=== PATIENT | female | born 1960 | race Caucasian/White ===

== ENCOUNTER 2024-09-12 10:56 | Inpatient (IN) | payer MEDICARE, BC ==
[2024-09-05 12:42] LABS: BASOPHILS % 0.3 % (0.0-1.0); EOSINOPHILS # (AUTO) 0.2 (0.0-0.4); EOSINOPHILS % 2.8 % (0.0-6.0); HEMATOCRIT 46.2 % (34.2-44.1); HEMOGLOBIN 15.1 g/dL (12.0-16.0); LYMPHOCYTES # (AUTO) 2.1 (1.0-3.2); LYMPHOCYTES % 33.2 % (18.0-39.1); MEAN CORPUSCULAR HEMOGLOBIN 29.7 pg (28-32); MEAN CORPUSCULAR HGB CONC 32.7 g/dL (31-35); MEAN CORPUSCULAR VOLUME 90.8 fL (81-99); MONOCYTES # (AUTO) 0.4 (0.2-0.8); MONOCYTES % 6.4 % (4.4-11.3); NEUTROPHILS # (AUTO) 3.7 (2.1-6.9); PLATELET COUNT 300 x10e3/uL (140-360); RED BLOOD COUNT 5.09 x10e6/uL (3.6-5.1); RED CELL DISTRIBUTION WIDTH 12.9 % (11.7-14.4); WHITE BLOOD COUNT 6.41 x10e3/uL (4.8-10.8)
[2024-09-05 13:08] LABS: ANION GAP 14.7 mmol/L (8-16); CREATININE, SERUM 0.73 mg/dL (0.57-1.11); POTASSIUM 4.7 mmol/L (3.5-5.1)
[~2024-09-12] VITALS: Ht 157.5 cm; Wt 60.9 kg
[~2024-09-12 10:56] MED LIST: BUSPIRONE HCL5 MG PO; CO Q-10200 MG PO; ESTRADIOL1 MG PO; MAGNESIUM400 MG PO; MEGARED OMEGA-1 EAC1 PEG; MELATONIN5 M2 PO; NP THYROID60 MG PO; PRISTIQ ER50 MG PO; PROGESTERONE100 MG PO; SELENIUM200 MC2 PEG; TUMERIC/CURCUMIN PO; VITAMIN B121000 MCG PO; VITAMIN C1000 MG PO; VITAMIN D31250 MCG PO; XYZAL5 MG PO; ZINC50 M2 PEG
[2024-09-12] MEDS: PIPERACILLIN/TAZOBACTAM 3.375 GM VIAL ONE (11:20)
[2024-09-12] MEDS: GENTAMICIN 80MG/NS 100 ML 200 ML IV ONE (11:20)
[2024-09-12] MEDS: SODIUM CHLORIDE 0.9% 1000ML 1,000 ML ONE (11:20)
[2024-09-12] MEDS: CLINDAMYCIN 600MG / 50ML 50 ML IV ONE (11:20)
[2024-09-12] MEDS ORDERED: MOUNJARO2.5 MG/0.5 SC (11:35)
[2024-09-12] MEDS ORDERED: FENTANYL CITRATE/PF 100MCG/2 ML INJ ONE (14:52)
[2024-09-12] MEDS ORDERED: LIDOCAINE HCL 2% LOCAL INJ 5 ML SDV VIAL INJ ONE (14:52)
[2024-09-12] MEDS ORDERED: ROCURONIUM BROMIDE 1 ML IV ONE (14:52)
[2024-09-12] MEDS ORDERED: PROPOFOL IV EMULSION 10 MG/ML 20 ML VIAL ONE ×2 (14:54→16:56)
[2024-09-12] MEDS ORDERED: ONDANSETRON HCL INJ 2MG/ML 2ML 2 MG/ML VIAL IV PRN (15:30)
[2024-09-12] MEDS ORDERED: ACETAMINOPHEN 1000 MG/100 ML IV PRN (15:30)
[2024-09-12] MEDS ORDERED: DIPHENHYDRAMINE HCL INJ 50 MG/ML VIAL IM PRN (15:30)
[2024-09-12] MEDS ORDERED: DEXAMETHASONE SOD PHOS INJ 4 MG/ML SDV ONE (16:17)
[2024-09-12] MEDS ORDERED: ACETAMINOPHEN 1000 MG/100 ML 100 ML IV ONE (16:21)
[2024-09-12] MEDS ORDERED: ESMOLOL HCL 100MG/10ML 10 MG/ML VIAL ONE (16:21)
[2024-09-12] MEDS ORDERED: EPHEDRINE SULFATE INJ 50 MG/ML VIAL ONE (16:36)
[2024-09-12] MEDS ORDERED: SEVOFLURANE INHAL SOLN 250 ML PEN BTL ONE (16:51)
[2024-09-12] MEDS ORDERED: SUGAMMADEX SODIUM 200 MG/2 ML VIAL IV ONE (17:06)
[2024-09-12] MEDS: METOCLOPRAMIDE HCL 10 MG/2ML VIAL ONE (17:41)
[2024-09-12] MEDS: ONDANSETRON HCL INJ 2MG/ML 2ML 2 MG/ML VIAL ONE (17:41)
[2024-09-12] MEDS: FENTANYL CITRATE/PF 100MCG/2 ML INJ ONE (17:41)
[2024-09-12] MEDS: SENNA-S TABLET PO SCH (18:29)
[2024-09-12] MEDS: SODIUM CHLORIDE 0.9% 1000ML 1,000 ML IV SCH (18:30)
[2024-09-12 18:42] VITALS: BP 95/71; PULSE 71; RESP 18; O2SAT 98
[2024-09-12 19:37] VITALS: PULSE 76; RESP 18; O2SAT 98
[2024-09-12 20:00] VITALS: BP 85/68; PULSE 80; RESP 16; TEMP 97.7; O2SAT 100
[2024-09-12] MEDS: KETOROLAC TROMETHAMINE 30 MG/ML VIAL ONE (20:41)
[2024-09-12 22:28] VITALS: BP 96/61
[2024-09-12 22:37] VITALS: BP 96/61; PULSE 80; RESP 16; TEMP 97.7; O2SAT 100
[2024-09-13] VITALS (9 sets, daily range): BP systolic 93–138; BP diastolic 51–69; PULSE 71–82; RESP 17–19; TEMP 97.5–98.4; O2SAT 98–100
[2024-09-13 05:23] LABS: BASOPHILS % 0.2 % (0.0-1.0); HEMATOCRIT 37.6 % (34.2-44.1); HEMOGLOBIN 12.3 g/dL (12.0-16.0); LYMPHOCYTES # (AUTO) 1.2 (1.0-3.2); LYMPHOCYTES % 9.5 % (18.0-39.1); MEAN CORPUSCULAR HEMOGLOBIN 29.9 pg (28-32); MEAN CORPUSCULAR HGB CONC 32.7 g/dL (31-35); MEAN CORPUSCULAR VOLUME 91.5 fL (81-99); MONOCYTES # (AUTO) 0.7 (0.2-0.8); MONOCYTES % 5.1 % (4.4-11.3); NEUTROPHILS # (AUTO) 10.9 (2.1-6.9); NEUTROPHILS % 84.8 % (38.7-80.0); PLATELET COUNT 245 x10e3/uL (140-360); RED BLOOD COUNT 4.11 x10e6/uL (3.6-5.1); RED CELL DISTRIBUTION WIDTH 13.4 % (11.7-14.4); WHITE BLOOD COUNT 12.81 x10e3/uL (4.8-10.8)
[2024-09-13] MEDS: ACETAMINOPHEN/CODEINE 300MG - 30MG TAB PO PRN (05:38)
[2024-09-13 05:46] LABS: ANION GAP 12.2 mmol/L (8-16); CALCIUM 7.6 mg/dL (8.4-10.2); CREATININE, SERUM 0.61 mg/dL (0.57-1.11); POTASSIUM 4.2 mmol/L (3.5-5.1)
[2024-09-13] MEDS: THYROID 60 MG TAB PO SCH (09:49)
[2024-09-13] MEDS: CYANOCOBALAMIN 1,000 MCG TAB PO SCH (09:49)
[2024-09-13] MEDS: BUSPIRONE HCL 5 MG TAB PO SCH (09:49)
[2024-09-13] MEDS: LORATADINE 10 MG TAB PO SCH (09:49)
[2024-09-13] MEDS: DESVENLAFAXINE SUCCINATE 50 MG TAB.SR.24H PO SCH (09:50)
[2024-09-13] MEDS: PHENAZOPYRIDINE HCL 100 MG TAB PO PRN (10:01)
[2024-09-13] MEDS: MELATONIN 5 MG TABLET PO SCH (20:17)
[2024-09-14] VITALS: BP 122/68; PULSE 81; RESP 18; TEMP 97.8; O2SAT 99
[2024-09-14 01:24] VITALS: BP 138/69; PULSE 72; RESP 18; TEMP 98.1; O2SAT 100
[2024-09-14 04:00] VITALS: BP 136/66; PULSE 84; RESP 18; TEMP 98.2; O2SAT 97
[2024-09-14 05:15] LABS: BASOPHILS % 0.3 % (0.0-1.0); EOSINOPHILS # (AUTO) 0.1 (0.0-0.4); EOSINOPHILS % 1.8 % (0.0-6.0); HEMATOCRIT 35.1 % (34.2-44.1); HEMOGLOBIN 11.4 g/dL (12.0-16.0); LYMPHOCYTES # (AUTO) 1.7 (1.0-3.2); LYMPHOCYTES % 21.9 % (18.0-39.1); MEAN CORPUSCULAR HEMOGLOBIN 29.9 pg (28-32); MEAN CORPUSCULAR HGB CONC 32.5 g/dL (31-35); MEAN CORPUSCULAR VOLUME 92.1 fL (81-99); MONOCYTES # (AUTO) 0.6 (0.2-0.8); NEUTROPHILS # (AUTO) 5.1 (2.1-6.9); NEUTROPHILS % 67.6 % (38.7-80.0); PLATELET COUNT 208 x10e3/uL (140-360); RED BLOOD COUNT 3.81 x10e6/uL (3.6-5.1); RED CELL DISTRIBUTION WIDTH 13.6 % (11.7-14.4); WHITE BLOOD COUNT 7.59 x10e3/uL (4.8-10.8)
[2024-09-14 06:00] LABS: ANION GAP 10.1 mmol/L (8-16); CALCIUM 7.7 mg/dL (8.4-10.2); CREATININE, SERUM 0.65 mg/dL (0.57-1.11); POTASSIUM 4.1 mmol/L (3.5-5.1)
[2024-09-14 08:00] VITALS: BP 136/66; PULSE 84; RESP 18; TEMP 98.2; O2SAT 97
[2024-09-14] MEDS: ESTRADIOL 1 MG TAB PO SCH (12:23)
[2024-09-14] MEDS: ASCORBIC ACID 500 MG TAB PO SCH (12:23)
[2024-09-14] MEDS ORDERED: TYLENOL WITH CODIENE PO (16:26)
[2024-09-14] MEDS ORDERED: LEVOFLOXACIN250 MG PO (16:29)
== END 2024-09-14 17:07 | disposition home or self-care (01) | DRG 748 ==
LOC: OR 10:56 → PACU V 15:24 → MED/SURG 18:18
PROVIDERS: ADMIT Internal Medicine; ATTEND Internal Medicine
PROC: 0TSD0ZZ Reposition Urethra, Open Approach (ICD-10-PCS; 2024-09-12)
PROC: BT141ZZ Fluoroscopy of Kidneys, Ureters and Bladder using Low Osmolar Contrast (ICD-10-PCS; 2024-09-12)
PROC: 0TJB8ZZ Inspection of Bladder, Via Natural or Artificial Opening Endoscopic (ICD-10-PCS; 2024-09-12)
PROC: 0TUD0KZ Supplement Urethra with Nonautologous Tissue Substitute, Open Approach (ICD-10-PCS; 2024-09-12)
PROC: 0JUC0KZ Supplement of Pelvic Region Subcutaneous Tissue and Fascia with Nonautologous Tissue Substitute, Open Approach (ICD-10-PCS; principal; 2024-09-12 16:02)
DX: N81.10 Cystocele, unspecified (principal); E03.9 Hypothyroidism, unspecified; N13.5 Crossing vessel and stricture of ureter without hydronephrosis; N39.3 Stress incontinence (female) (male); Z79.890 Hormone replacement therapy; Z90.710 Acquired absence of both cervix and uterus; Z87.440 Personal history of urinary (tract) infections
CPT/HCPCS: 36415; 71046; 74420; 80048; 85025; 94799; C1758; C1762; J1100; J1580; J1885; J2003; J2405; J2543; J2765; J7030